=== PATIENT | female | born 1995 | race Caucasian/White ===

== ENCOUNTER 2018-05-15 04:24 | Emergency (ER) | payer MEDICAID ==
[2018-05-15] MEDS ORDERED: CEFTRIAXONE 250 MG VIAL IM ONE (04:38)
[2018-05-15] MEDS ORDERED: DOXYCYCLINE HYCLATE 100 MG CAPSULE PO ONE (04:38)
--- NOTE | 2018-05-15 04:38 | Emergency Department Record ---
History of Present Illness - General Chief complaint: Female Urogenital Problem Stated complaint: STD EXPOSURE Time Seen by Provider: 05/15/18 04:25 Source: Patient Mode of Arrival: Ambulatory Limitations: No limitations - History of Present Illness Initial comments: The patient is here at 4:30 am due to possibly being exposed to an STD. Her is presently being treated for a Urethritis which she has been exposed to. The patient denies any vaginal discharge, bleeding, dysuria, or AP. Complaint: Possible STD -: Unknown Improves with: None Worsens with: None Associated Symptoms: Denies other symptoms - Related Data Sexually active: Yes Previous Rx's Medication Instructions Recorded Doxycycline Monohydrate [Mondoxyne 100 mg PO BID #14 capsule 05/15/18 Nl] Allergies Allergy/AdvReac Type Severity Reaction Status Date / Time No Known Drug Allergies Allergy Unverified 12/11/16 16:58 Travel Screening - Travel/Exposure Within Last 30 Days Have you traveled within the last 30 days?: No Review of Systems Constitutional: Denies: Chills, Fever Past Medical History - SOCIAL HISTORY Smoking Status: Never smoker Alcohol Use: Occasional Drug Use: None - RESPIRATORY Hx Respiratory Disorders: Yes Comment:: allergies - CARDIOVASCULAR Hx Cardio Disorders: No - NEURO Hx Neuro Disorders: No - GI Hx GI Disorders: No - Hx Genitourinary Disorders: No - ENDOCRINE Hx Endocrine Disorders: No Hx Diabetes: No - MUSCULOSKELETAL Hx Musculoskeletal Disorders: Yes - PSYCH Hx Psych Problems: No - HEMATOLOGY/ONCOLOGY Hx Hematology/Oncology Disorders: No Family Medical History Any Significant Family History?: Yes Hx Cancer: Grandparents Physical Exam - General General Appearance: Alert, Cooperative, No acute distress - Head Head exam: Atraumatic, Normocephalic - Neck Neck exam: Normal inspection, Full ROM. negative: Tenderness - Respiratory Respiratory exam: Normal lung sounds bilaterally. negative: Respiratory distress - Cardiovascular Cardiovascular Exam: Regular rate, Normal rhythm, Normal heart sounds - GI/Abdominal GI/Abdominal exam: Soft, Normal bowel sounds. negative: Rebound, Rigid, Tenderness Course Vital Signs 05/15/18 04:25 Temperature 98.3 F Pulse Rate 76 Respiratory 20 Rate Blood Pressure 125/82 Pulse Ox 100 - Reevaluation(s) Reevaluation #1: I did explain to the patient the need to practice safe sex and to see her PCP for a full STD evaluation including HIV. 05/15/18 04:37 Reevaluation #2: Since the patient is asymptomatic I did offer to watch and wait on her urine cultures but she states she would like to be treated with the same medicines we treated her with. 05/15/18 04:39 Medical Decision Making - Lab Data Lab Results 05/15/18 Range/Units 04:33 Urine HCG, Qual Negative (NEGATIVE) Disposition Disposition: Discharge Clinical Impression: Exposure to STD Disposition: Home, Self-Care Condition: (2) Stable Instructions: Sexually Transmitted Diseases (ED) Additional Instructions: Please take the Doxycycline as directed and please practice safe sex for at least a week. Please see your family doctor for recheck and for a full STD evaluation including HIV. Prescriptions: Doxycycline Monohydrate [Mondoxyne Nl] 100 mg PO BID #14 capsule Forms: Patient Portal Access Time of Disposition: 04:41 Quality - Quality Measures Quality Measures: N/A - Blood Pressure Screening View Details: Yes Does Patient Have Any of the Following: No Blood Pressure Classification: Pre-Hypertensive BP Reading Systolic Measurement: 125 Diastolic Measurement: 82 Screening for High Blood Pressure: < Pre-Hypertensive BP, F/U Documented > [ [id number]] Pre-Hypertensive Follow-up Interventions: Referral to alternative/primary care provider.
== END 2018-05-15 04:52 | disposition home or self-care (01) ==
LOC: ER 04:24
DX: Z20.2 Contact with and (suspected) exposure to infections with a predominantly sexual mode of transmission (principal)
CPT/HCPCS: 81025; 96372; 99283